=== PATIENT | female | born 1985 | race Caucasian/White ===

== ENCOUNTER 2018-08-26 06:57 | Emergency (ER) | payer OTHER ==
[2018-08-26] MEDS ORDERED: HYDROCODONE/ACETAMINOPHEN 10/325 MG TAB ONE (08:05)
[2018-08-26] MEDS ORDERED: ONDANSETRON ODT 4 MG TAB ONE (08:08)
== END 2018-08-26 12:23 | disposition home or self-care (01) ==
LOC: EDH 06:57
DX: S52.122A Displaced fracture of head of left radius, initial encounter for closed fracture (principal); S52.002A Unspecified fracture of upper end of left ulna, initial encounter for closed fracture; F41.9 Anxiety disorder, unspecified; Z79.899 Other long term (current) drug therapy; V69.9XXA Occupant (driver) (passenger) of heavy transport vehicle injured in unspecified traffic accident, initial encounter; Y93.89 Activity, other specified; Y92.89 Other specified places as the place of occurrence of the external cause; Y99.8 Other external cause status
CPT/HCPCS: 73080; 73090

== ENCOUNTER 2019-02-28 07:33 | Emergency (ER) | payer OTHER ==
[2019-02-28] MEDS ORDERED: BENZONATATE 100 MG CAPSULE PO ONE (07:51)
[2019-02-28] MEDS ORDERED: AZITHROMYCIN 250 MG TABLET PO ONE (07:51)
== END 2019-02-28 08:00 | disposition home or self-care (01) ==
LOC: EDH 07:33
DX: J18.9 Pneumonia, unspecified organism (principal); F41.9 Anxiety disorder, unspecified